=== PATIENT | female | born 1960 | race Caucasian/White ===

== ENCOUNTER 2017-12-21 20:23 | Observation (INO) | payer BC, MEDICAID ==
[~2017-12-21] VITALS: Ht 170.2 cm; Wt 81.6 kg
[2017-12-21] MEDS ORDERED: SODIUM CHLORIDE 0.9% 1,000 ML IVB ONE (21:26)
[2017-12-21 21:47] LABS: Urine Bacteria NONE SEEN /hpf (None Seen); Urine Blood Negative /uL (Negative); Urine Specific Gravity 1.022 (1.001-1.035); Urine WBC 3 /hpf (0 - 5)
[2017-12-21 21:57] LABS: Alcohol, Urine < 3.0 mg/dL (0-5); Amphetamine Screen, Urine NEGATIVE (NEGATIVE); Barbiturate Scree,Urine NEGATIVE (NEGATIVE); Benzodiazephine Screen, Urine POSITIVE (NEGATIVE); Cannabinoid Screen, Urine NEGATIVE (NEGATIVE); Cocaine Screen, Urine NEGATIVE (NEGATIVE); Opiate Scree,Urine NEGATIVE (NEGATIVE); Phencyclidine Screen, Urine NEGATIVE (NEGATIVE)
[2017-12-21 22:23] LABS: Basophils # (auto) 0.1 uL; Basophils % (auto) 1.3 % (0.0-2.0); Eosinophils # (auto) 0.1 uL; Eosinophils % (auto) 0.7 % (0.0-7.0); Hematocrit 41.3 % (36.0-46.0); Hemoglobin 13.8 g/dL (12.2-16.2); Lymphocytes # (auto) 2.4 uL; Lymphocytes % (auto) 27.4 % (10.0-50.0); Mean Corpuscular Hemoglobin 29.4 pg (28.0-32.0); Mean Corpuscular Hgb Conc. 33.5 g/dL (32.0-36.0); Mean Corpuscular Volume 87.8 fL (80.0-100.0); Monocytes # (auto) 0.5 uL; Monocytes % (auto) 5.7 % (0.0-12.0); Neutrophils # (auto) 5.7 uL; Neutrophils % (auto) 64.9 % (37.0-80.0); Platelet Count (auto) 236 10^3/uL (140-450); Red Cell Distribution Width 13.2 % (11.8-14.3); White Blood Cell 8.7 10^3/uL (4.4-10.8)
[2017-12-21 22:38] LABS: INR 0.89 (0.9-1.15); Partial Thromboplastin Time 25.6 sec (23.78-33.04); Prothrombin Time 9.6 sec (9.27-12.13)
[2017-12-21 22:44] LABS: Alanine Aminotransferase 16 U/L (13-56); Albumin 4.1 g/dL (3.4-5.0); Alkaline Phosphatase 72 U/L (45-117); Anion Gap 11 (5-15); Aspartate Aminotransferase 19 U/L (15-37); BUN/Creatinine Ratio 21.7; Bilirubin, Total 0.7 mg/dL (0.2-1.0); Blood Urea Nitrogen 20 mg/dL (7-18); Calcium 10.4 mg/dL (8.5-10.1); Carbon Dioxide 22 mmol/L (21-32); Chloride 106 mmol/L (98-107); GFR African American 80 mL/min; GFR Non-African American 66 mL/min; Glucose 124 mg/dL (74-106); Sodium 139 mmol/L (136-145); Total Protein 8.3 g/dL (6.4-8.2)
[2017-12-21] MEDS ORDERED: ACETAMINOPHEN 325 MG TAB PO ONE (22:45)
[2017-12-21 22:47] LABS: Potassium 5.5 mmol/L (3.5-5.1)
[2017-12-21 23:26] VITALS: BP 129/84
== END 2017-12-22 01:03 | disposition home or self-care (01) | DRG 312 ==
LOC: ER 20:23 → EDBD 20:23 → OVERFLOW 21:27 → ER 12-22 01:02
PROVIDERS: ADMIT Family Medicine; ATTEND Family Medicine
DX: R55 Syncope and collapse (principal); E11.9 Type 2 diabetes mellitus without complications; F41.9 Anxiety disorder, unspecified; I10 Essential (primary) hypertension; E78.5 Hyperlipidemia, unspecified; Z90.710 Acquired absence of both cervix and uterus; Z82.49 Family history of ischemic heart disease and other diseases of the circulatory system
CPT/HCPCS: 36415; 70450; 71046; 80053; 80307; 81001; 82962; 83735; 84484; 85025; 85610; 85730; 93005; 96360; 99285; G0378

== ENCOUNTER 2019-06-28 02:59 | Emergency (ER) | payer OTHER ==
[~2019-06-28] VITALS: Ht 165.1 cm; Wt 52.2 kg
[2019-06-28 04:59] LABS: Basophils # (auto) 0.1 uL; Basophils % (auto) 0.8 % (0.0-2.0); Eosinophils # (auto) 0.1 uL; Eosinophils % (auto) 1.7 % (0.0-7.0); Hematocrit 36.9 % (36.0-46.0); Hemoglobin 12.7 g/dL (12.2-16.2); Lymphocytes # (auto) 1.8 uL; Lymphocytes % (auto) 26.7 % (10.0-50.0); Mean Corpuscular Hemoglobin 29.6 pg (28.0-32.0); Mean Corpuscular Hgb Conc. 34.3 g/dL (32.0-36.0); Mean Corpuscular Volume 86.1 fL (80.0-100.0); Monocytes # (auto) 0.5 uL; Neutrophils # (auto) 4.2 uL; Neutrophils % (auto) 63.8 % (37.0-80.0); Platelet Count (auto) 194 10^3/uL (140-450); Red Blood Cells 4.29 10^6/uL (4.0-5.20); Red Cell Distribution Width 12.9 % (11.8-14.3); White Blood Cell 6.6 10^3/uL (4.4-10.8)
[2019-06-28 05:19] LABS: Alanine Aminotransferase 21 U/L (13-56); Albumin 3.4 g/dL (3.4-5.0); Anion Gap 12 (5-15); Aspartate Aminotransferase 10 U/L (15-37); BUN/Creatinine Ratio 21.9; Blood Urea Nitrogen 21 mg/dL (7-18); Calcium 9.1 mg/dL (8.5-10.1); Carbon Dioxide 18 mmol/L (21-32); Chloride 107 mmol/L (98-107); GFR African American 76 mL/min; GFR Non-African American 63 mL/min; Glucose 237 mg/dL (74-106); Potassium 3.8 mmol/L (3.5-5.1); Sodium 137 mmol/L (136-145)
[2019-06-28 05:24] LABS: Alkaline Phosphatase 86 U/L (45-117); Bilirubin, Total 0.4 mg/dL (0.2-1.0); Total Protein 7.3 g/dL (6.4-8.2)
[2019-06-28] MEDS ORDERED: ONDANSETRON HCL 4 MG/2 ML VIAL IV ONE (06:45)
[2019-06-28] MEDS ORDERED: MORPHINE SULFATE 4 MG/ML SYR/VIAL IV ONE (06:45)
[2019-06-28 07:22] VITALS: BP 103/56
== END 2019-06-28 09:39 | disposition home or self-care (01) ==
LOC: EDBD 02:59 → ER 03:01
DX: R07.81 Pleurodynia (principal); F41.9 Anxiety disorder, unspecified; E11.9 Type 2 diabetes mellitus without complications; E78.5 Hyperlipidemia, unspecified; I10 Essential (primary) hypertension; Z98.51 Tubal ligation status; Z90.710 Acquired absence of both cervix and uterus
CPT/HCPCS: 36415; 80053; 83880; 84484; 85025; 93005